=== PATIENT | female | born 1950 | race Caucasian/White ===

== ENCOUNTER 2021-03-12 08:39 | Inpatient (IN) | payer MEDICARE ==
[2021-03-12] MEDS ORDERED: ACETAMINOPHEN TAB 325 MG TAB PO PRN (09:18)
--- NOTE | 2021-03-12 10:25 | XR ---
EXAMINATION TYPE: XR chest 1V portable DATE OF EXAM: 03/12/2021 COMPARISON: NONE HISTORY: Suspected Covid 19 pneumonia TECHNIQUE: Single frontal view of the chest is obtained. FINDINGS: Patchy bilateral densities are present peripherally especially at the lung bases. No evide nt pneumothorax or pleural effusion. Cardiac mediastinal silhouette is within normal limits. Aorta is dense. Patient shows overlying artifact. IMPRESSION: Correlate for pneumonia, follow-up suggested.
[2021-03-12 10:40] LABS: Basophils % (A) 0 %; Eosinophils % (A) 0 %; HGB 14.9 gm/dL (11.4-16.0); Lymphocytes # (A) 0.3 k/uL (1.0-4.8); Lymphocytes % (A) 5 %; MCH 29.8 pg (25.0-35.0); MCHC 33.8 g/dL (31.0-37.0); MCV 88.1 fL (80.0-100.0); Mean Platelet Volume 7.2; Monocytes # (A) 0.3 k/uL (0-1.0); Monocytes % (A) 5 %; Neutrophils # (A) 5.2 k/uL (1.3-7.7); Neutrophils % (A) 88 %; Platelet Count 289 k/uL (150-450); RDW 12.1 % (11.5-15.5); WBC 5.9 k/uL (3.8-10.6)
[2021-03-12] MEDS: ALBUTEROL HFA INHALER INHALATION PRN ×2 (10:52→16:49)
[2021-03-12 10:58] LABS: Partial Thromboplastin Time 26.1 sec (22.0-30.0); Prothrombin Time 10.6 sec (9.0-12.0)
[2021-03-12 10:59] LABS: ALT 56 U/L (4-34); AST 53 U/L (14-36); African American GFR (CKD) >90 (>60 ml/min/1.73 sqM); Albumin 3.9 g/dL (3.5-5.0); Alkaline Phosphatase 57 U/L (38-126); Anion Gap 11 mmol/L; Blood Urea Nitrogen 13 mg/dL (7-17); C Reactive Protein 5.2 mg/dL (<1.0); Carbon Dioxide 22 mmol/L (22-30); Chloride 105 mmol/L (98-107); Glucose 160 mg/dL (74-99); LDH 1238 U/L (313-618); Magnesium 1.9 mg/dL (1.6-2.3); Non-African American GFR(CKD) 84 (>60 ml/min/1.73 sqM); Potassium 3.7 mmol/L (3.5-5.1); Sodium 138 mmol/L (137-145); Total Bilirubin 0.6 mg/dL (0.2-1.3); Total Protein 6.7 g/dL (6.3-8.2)
[2021-03-12] MEDS ORDERED: SODIUM CHLORIDE 0.9% 500 ML 500 ML IV STA (11:11)
[2021-03-12] MEDS ORDERED: ONDANSETRON 4 MG/2 ML VIAL IVP PRN (11:12)
[2021-03-12] MEDS ORDERED: NALOXONE 0.4 MG/ML 1 ML VIAL IV PRN (11:12)
--- NOTE | 2021-03-12 11:48 | ED ---
General Adult HPI - General Chief complaint: Shortness of Breath Stated complaint: Low oxygen Time Seen by Provider: 03/12/21 08:58 Source: patient, RN notes reviewed, old records reviewed Mode of arrival: ambulatory Limitations: no limitations - History of Present Illness Initial comments: Patient is a 70-year-old female with past medical history remarkable for thyroid disorder who presents emergency Department complaining of worsening Covid symptoms and shortness breath. She states she has had symptoms for at least 2 weeks. Most over the last few days she has been having worsening shortness of breath. She checked her pulse ox at home and was surprised to find it was in the low 80%'s which is why she presents emergency department for further evaluation. Endorses a mild minimally productive cough. Denies any nausea or vomiting. His time by mouth intake. He denies any chest pain. Has no other acute complaints at this time. Patient was not vaccinated. She denies any fevers. She did not receive monoclonal antibodies. - Related Data Home Medications Medication Instructions Recorded Confirmed Albuterol Sulfate [Proair Hfa] 1 - 2 puff INHALATION RT-QID PRN 03/12/21 03/12/21 Ascorbic Acid [Vitamin C] 500 mg PO DAILY 03/12/21 03/12/21 Azithromycin [Zithromax] 500 mg PO DAILY 03/12/21 03/12/21 Benzonatate [Tessalon Perles] 200 mg PO TID PRN 03/12/21 03/12/21 Calcium Carbonate [Calcium] 600 mg PO DAILY 03/12/21 03/12/21 Cholecalciferol [Vitamin D3 (25 25 mcg PO DAILY 03/12/21 03/12/21 Mcg = 1000 Iu)] Cyanocobalamin (Vitamin B-12) 1,000 mcg PO DAILY 03/12/21 03/12/21 [Vitamin B-12] Levothyroxine Sodium [Synthroid] 150 mcg PO DAILY 03/12/21 03/12/21 Niacin 500 mg PO DAILY 03/12/21 03/12/21 Zinc 50 mg PO DAILY 03/12/21 03/12/21 dexAMETHasone 4 mg PO DAILY 03/12/21 03/12/21 Allergies Allergy/AdvReac Type Severity Reaction Status Date / Time No Known Allergies Allergy Verified 03/12/21 11:06 Review of Systems ROS Statement: Those systems with pertinent positive or pertinent negative responses have been documented in the HPI. Review of Systems: CONST: Denies fever EYES: Denies blurry vision ENT: Denies nasal congestion C/V: Denies Chest pain RESP: Endorses shortness of breath GI: Denies abdominal pain : Denies dysuria SKIN: Denies rash. MSK: Denies joint pain. NEURO: Denies headache ROS Other: All systems not noted in ROS Statement are negative. Past Medical History Past Medical History: Thyroid Disorder History of Any Multi-Drug Resistant Organisms: None Reported Additional Past Surgical History / Comment(s): Thyroid removal, eye surgery Past Psychological History: No Psychological Hx Reported Smoking Status: Never smoker Past Alcohol Use History: None Reported Past Drug Use History: None Reported General Exam - General Exam Comments Initial Comments: General: In mild respiratory distress when ambulating. HEAD: Normal with no signs of head trauma. EYES: PERRLA, EOMI, conjunctiva normal, no discharge. ENT: Hearing grossly intact, normal oropharynx. RESPIRATORY: Mild bilateral crackles. No wheezes, rales, or rhonchi. Not hypoxic at rest, however is hypoxic on exertion down to worst of 86%. C/V: Patient is mildly tachycardic with a regular rhythm. S1 and S2 auscultated. No peripheral edema. Peripheral pulses are 2+ and intact. ABD: Abd is soft, nontender, nondistended EXT: Normal range of motion, no obvious deformity SKIN: No rashes or lesions observed on exposed skin. NEURO: Alert and oriented 4. Limitations: no limitations Course Vital Signs 03/12/21 03/12/21 03/12/21 08:48 09:55 12:43 Temperature 99.1 F Pulse Rate 107 H 109 H Respiratory 20 20 20 Rate Blood Pressure 147/80 146/89 O2 Sat by Pulse 93 L 93 L Oximetry Medical Decision Making - Medical Decision Making Based on patient's presentation and physical exam, I'm concerned for worsening hypoxic respiratory failure secondary to COVID-19 pneumonia. She is not hypoxic at rest but does have exertional hypoxia. Therefore we will obtain Covid 19 laboratory studies. She is outside the window for monoclonal antibodies. She'll be started on Decadron twice a day as well as when necessary breathing treatments and Tylenol. Chest x-ray and EKG will be obtained. She was in agreement with this plan. EKG showed sinus tachycardia with no signs of acute ischemia. Chest x-ray revealed bilateral pulmonary infiltrates. Laboratory studies are remarkable for a normal d-dimer. Lactate is mildly elevated 2.4 which is likely secondary to mild dehydration. She'll be given a small fluid bolus. Patient's LDH is elevated at 1200. Troponin is negative. CRP is elevated to 5.2. Covid is positive. Remainder of the labs are unremarkable. Accepted the patient on the results of laboratory studies and imaging. I would like to admitted to the hospital at this time due to her exertional hypoxia. She was in agreement this plan. I consulted Dr. Vincent of pulmonology as well as Dr. Gallego of infectious disease. I spoke with the admitting team under Dr. Lama who accepted the patient. Patient was therefore admitted and serous condition to telemetry bed. - Lab Data Result diagrams: 03/12/21 10:14 03/12/21 10:13 Lab Results 03/12/21 03/12/21 03/12/21 Range/Units 10:13 10:13 10:13 WBC (3.8-10.6) k/uL RBC (3.80-5.40) m/uL Hgb (11.4-16.0) gm/dL Hct (34.0-46.0) % MCV (80.0-100.0) fL MCH (25.0-35.0) pg MCHC (31.0-37.0) g/dL RDW (11.5-15.5) % Plt Count (150-450) k/uL MPV Neutrophils % % Lymphocytes % % Monocytes % % Eosinophils % % Basophils % % Neutrophils # (1.3-7.7) k/uL Lymphocytes # (1.0-4.8) k/uL Monocytes # (0-1.0) k/uL Eosinophils # (0-0.7) k/uL Basophils # (0-0.2) k/uL PT 10.6 (9.0-12.0) sec INR 1.0 (<1.2) APTT 26.1 (22.0-30.0) sec D-Dimer 0.51 (<0.60) mg/L FEU Sodium 138 (137-145) mmol/L Potassium 3.7 (3.5-5.1) mmol/L Chloride 105 (98-107) mmol/L Carbon Dioxide 22 (22-30) mmol/L Anion Gap 11 mmol/L BUN 13 (7-17) mg/dL Creatinine 0.74 (0.52-1.04) mg/dL Est GFR (CKD-EPI)AfAm >90 (>60 ml/min/1.73 sqM) Est GFR (CKD-EPI)NonAf 84 (>60 ml/min/1.73 sqM) Glucose 160 H (74-99) mg/dL Lactic Ac Sepsis Rflx Plasma Lactic Acid Brandyn 2.4 H* (0.7-2.0) mmol/L Calcium 9.0 (8.4-10.2) mg/dL Magnesium 1.9 (1.6-2.3) mg/dL Total Bilirubin 0.6 (0.2-1.3) mg/dL AST 53 H (14-36) U/L ALT 56 H (4-34) U/L Alkaline Phosphatase 57 (38-126) U/L Lactate Dehydrogenase 1238 H (313-618) U/L Troponin I (0.000-0.034) ng/mL C-Reactive Protein 5.2 H (<1.0) mg/dL Total Protein 6.7 (6.3-8.2) g/dL Albumin 3.9 (3.5-5.0) g/dL Coronavirus (PCR) (Not Detectd) 03/12/21 03/12/21 03/12/21 Range/Units 10:13 10:14 10:32 WBC 5.9 (3.8-10.6) k/uL RBC 5.00 (3.80-5.40) m/uL Hgb 14.9 (11.4-16.0) gm/dL Hct 44.0 (34.0-46.0) % MCV 88.1 (80.0-100.0) fL MCH 29.8 (25.0-35.0) pg MCHC 33.8 (31.0-37.0) g/dL RDW 12.1 (11.5-15.5) % Plt Count 289 (150-450) k/uL MPV 7.2 Neutrophils % 88 % Lymphocytes % 5 % Monocytes % 5 % Eosinophils % 0 % Basophils % 0 % Neutrophils # 5.2 (1.3-7.7) k/uL Lymphocytes # 0.3 L (1.0-4.8) k/uL Monocytes # 0.3 (0-1.0) k/uL Eosinophils # 0.0 (0-0.7) k/uL Basophils # 0.0 (0-0.2) k/uL PT (9.0-12.0) sec INR (<1.2) APTT (22.0-30.0) sec D-Dimer (<0.60) mg/L FEU Sodium (137-145) mmol/L Potassium (3.5-5.1) mmol/L Chloride (98-107) mmol/L Carbon Dioxide (22-30) mmol/L Anion Gap mmol/L BUN (7-17) mg/dL Creatinine (0.52-1.04) mg/dL Est GFR (CKD-EPI)AfAm (>60 ml/min/1.73 sqM) Est GFR (CKD-EPI)NonAf (>60 ml/min/1.73 sqM) Glucose (74-99) mg/dL Lactic Ac Sepsis Rflx Plasma Lactic Acid Brandyn (0.7-2.0) mmol/L Calcium (8.4-10.2) mg/dL Magnesium (1.6-2.3) mg/dL Total Bilirubin (0.2-1.3) mg/dL AST (14-36) U/L ALT (4-34) U/L Alkaline Phosphatase (38-126) U/L Lactate Dehydrogenase (313-618) U/L Troponin I <0.012 (0.000-0.034) ng/mL C-Reactive Protein (<1.0) mg/dL Total Protein (6.3-8.2) g/dL Albumin (3.5-5.0) g/dL Coronavirus (PCR) Detected A (Not Detectd) 03/12/21 Range/Units 11:10 WBC (3.8-10.6) k/uL RBC (3.80-5.40) m/uL Hgb (11.4-16.0) gm/dL Hct (34.0-46.0) % MCV (80.0-100.0) fL MCH (25.0-35.0) pg MCHC (31.0-37.0) g/dL RDW (11.5-15.5) % Plt Count (150-450) k/uL MPV Neutrophils % % Lymphocytes % % Monocytes % % Eosinophils % % Basophils % % Neutrophils # (1.3-7.7) k/uL Lymphocytes # (1.0-4.8) k/uL Monocytes # (0-1.0) k/uL Eosinophils # (0-0.7) k/uL Basophils # (0-0.2) k/uL PT (9.0-12.0) sec INR (<1.2) APTT (22.0-30.0) sec D-Dimer (<0.60) mg/L FEU Sodium (137-145) mmol/L Potassium (3.5-5.1) mmol/L Chloride (98-107) mmol/L Carbon Dioxide (22-30) mmol/L Anion Gap mmol/L BUN (7-17) mg/dL Creatinine (0.52-1.04) mg/dL Est GFR (CKD-EPI)AfAm (>60 ml/min/1.73 sqM) Est GFR (CKD-EPI)NonAf (>60 ml/min/1.73 sqM) Glucose (74-99) mg/dL Lactic Ac Sepsis Rflx Y Plasma Lactic Acid Brandyn (0.7-2.0) mmol/L Calcium (8.4-10.2) mg/dL Magnesium (1.6-2.3) mg/dL Total Bilirubin (0.2-1.3) mg/dL AST (14-36) U/L ALT (4-34) U/L Alkaline Phosphatase (38-126) U/L Lactate Dehydrogenase (313-618) U/L Troponin I (0.000-0.034) ng/mL C-Reactive Protein (<1.0) mg/dL Total Protein (6.3-8.2) g/dL Albumin (3.5-5.0) g/dL Coronavirus (PCR) (Not Detectd) - EKG Data -: EKG Interpreted by Me EKG Comments: 12-lead Electrocardiogram Interpretation Note EKG was reviewed and interpreted by myself. 12-lead ECG performed at 0900 is interpreted by me as revealing sinus tachycardia at a rate of 105 beats per minute. [place] is normal. IN interval is 130 ms, QRS duration is 80 ms, QTc is 438 ms.. There were no ST or T wave abnormalities to suggest myocardial ischemia or injury. R wave progression across the precordium was satisfactory. By my interpretation this EKG is non-diagnostic for acute ischemia. Disposition Clinical Impression: Pneumonia due to COVID-19 virus, Acute respiratory failure with hypoxia, Dehydration Disposition: ADMITTED IP TO THIS HOSP Condition: Serious
[2021-03-12] MEDS: DEXAMETHASONE SOD PHOSPHATE 10 MG/ML 1 ML VIAL IVP SCH ×2 (12:40→19:55)
[2021-03-12] MEDS: ENOXAPARIN 40 MG/0.4 ML SYRINGE SQ SCH (12:41)
--- NOTE | 2021-03-12 13:27 | P.CNPUL ---
History of Present Illness Consult date: 03/12/21 Requesting physician: Michelle Lama Reason for consult: dyspnea, abnormal CXR/CT Chief complaint: Shortness of breath, cough, congestion History of present illness: This is a pleasant 70-year-old female patient with known history of hypothyroidism status post thyroidectomy. Left lung nonsmoker. She has a two- week history of fatigue, weakness, shortness of breath and dyspnea on exertion. She had been seen in urgent care and was started on albumin, azithromycin and Decadron. This was just yesterday. She presented here to the emergency room this morning with worsening symptoms. Her had been admitted one week ago for COVID-19. She is also positive for COVID-19. Chest x-ray is positive for patchy bilateral densities present peripherally especially at the lung bases. White count 5.9. Hemoglobin 14.9. Lymphocytes 0.3. D-dimer 0.51. Sodium 138. Potassium 3.7. Creatinine 0.74. Glucose 160. AST 53. ALT 56. LDH 1238. C-reactive protein 5.2. She's been initiated on Decadron, Lovenox. He is seen in consultation in the emergency room. She is sitting up on the s tretcher. Awake and alert in no acute distress. Maintain O2 saturation at 93% on room air. Afebrile. Slightly tachycardic. Blood pressure stable. Review of Systems REVIEW OF SYSTEMS: CONSTITUTIONAL: Denies any recent significant weight loss or weight gain. EYES: Denies change in vision. EARS, NOSE, MOUTH, THROAT: Denies headaches, denies sore throat. CARDIOVASCULAR: Denies chest pain, palpitations or syncopal episodes. RESPIRATORY: Positive for shortness of breath, cough, congestion no hemoptysis. GASTROINTESTINAL: Denies change in appetite, denies abdominal pain GENITOURINARY: Denies hematuria, denies infections. MUSKULOSKELETAL: Denies pain, denies swelling. INTEGUMENTARY: Denies rash, denies eczema. NEUROLOGICAL: Denies recent memory loss, no recent seizure activity. PSYCHIATRIC: Denies anxiety, denies depression. HEMATOLOGIC/LYMPHATIC: Denies anemia, denies enlarged lymph nodes. Past Medical History Past Medical History: Thyroid Disorder History of Any Multi-Drug Resistant Organisms: None Reported Additional Past Surgical History / Comment(s): Thyroid removal, eye surgery Past Psychological History: No Psychological Hx Reported Smoking Status: Never smoker Past Alcohol Use History: None Reported Past Drug Use History: None Reported Medications and Allergies Home Medications Medication Instructions Recorded Confirmed Type Albuterol Sulfate [Proair Hfa] 1 - 2 puff INHALATION RT-QID PRN 03/12/21 History Ascorbic Acid [Vitamin C] 500 mg PO DAILY 03/12/21 03/12/21 History Azithromycin [Zithromax] 500 mg PO DAILY 03/12/21 03/12/21 History Benzonatate [Tessalon Perles] 200 mg PO TID PRN 03/12/21 03/12/21 History Calcium Carbonate [Calcium] 600 mg PO DAILY 03/12/21 03/12/21 History Cholecalciferol [Vitamin D3 (25 25 mcg PO DAILY 03/12/21 03/12/21 History Mcg = 1000 Iu)] Cyanocobalamin (Vitamin B-12) 1,000 mcg PO DAILY 03/12/21 03/12/21 History [Vitamin B-12] Levothyroxine Sodium [Synthroid] 150 mcg PO DAILY 03/12/21 03/12/21 History Niacin 500 mg PO DAILY 03/12/21 03/12/21 History Zinc 50 mg PO DAILY 03/12/21 03/12/21 History dexAMETHasone 4 mg PO DAILY 03/12/21 03/12/21 History Allergies Allergy/AdvReac Type Severity Reaction Status Date / Time No Known Allergies Allergy Verified 03/12/21 11:06 Physical Exam Vitals: Vital Signs Temp Pulse Resp BP Pulse Ox 03/12/21 12:43 109 H 20 146/89 93 L 03/12/21 09:55 20 03/12/21 08:48 99.1 F 107 H 20 147/80 93 L Intake and Output 03/11/21 03/12/21 03/12/21 22:59 06:59 14:59 Other: Weight 87.09 kg GENERAL EXAM: Alert, pleasant 70-year-old female, on room air, fairly comfortable in no apparent distress. HEAD: Normocephalic. EYES: Normal reaction of pupils, equal size. NOSE: Clear with pink turbinates. THROAT: No erythema or exudates. NECK: No masses, no JVD. CHEST: No chest wall deformity. LUNGS: Equal air entry with crackles in the bilateral bases. CVS: S1 and S2 normal with no audible murmur, regular rhythm. ABDOMEN: No hepatosplenomegaly, normal bowel sounds, no guarding or rigidity. SPINE: No scoliosis or deformity SKIN: No rashes CENTRAL NERVOUS SYSTEM: No focal deficits, tone is normal in all 4 extremities. EXTREMITIES: There is no peripheral edema. No clubbing, no cyanosis. Peripheral pulses are intact. Results - Laboratory Findings CBC and BMP: 03/12/21 10:14 03/12/21 10:13 PT/INR, D-dimer PT 10.6 sec (9.0-12.0) 03/12/21 10:13 INR 1.0 (<1.2) 03/12/21 10:13 D-Dimer 0.51 mg/L FEU (<0.60) 03/12/21 10:13 Abnormal lab findings: Abnormal Labs 03/12/21 03/12/21 03/12/21 10:13 10:13 10:14 Lymphocytes # 0.3 L Glucose 160 H Plasma Lactic Acid Brandyn 2.4 H* AST 53 H ALT 56 H Lactate Dehydrogenase 1238 H C-Reactive Protein 5.2 H Coronavirus (PCR) 03/12/21 10:32 Lymphocytes # Glucose Plasma Lactic Acid Brandyn AST ALT Lactate Dehydrogenase C-Reactive Protein Coronavirus (PCR) Detected A - Diagnostic Findings Chest x-ray: image reviewed Assessment and Plan Assessment: 1 Acute hypoxemic respiratory failure secondary to COVID-19 pneumonia. Onset of symptoms 2 weeks ago. Outside the window for Remdesivir. Not qualifying for Baricitinib. We'll initiate Lovenox, Decadron, vitamin supplements. Not vaccinated. 2 Elevated inflammatory markers secondary to above 3 Hypothyroidism status post thyroidectomy Plan: The patient was seen and evaluated Chest x-ray and labs reviewed Continue Lovenox, Decadron, vitamin supplements Oxygen supplementation as needed Follow-up labs and x-ray in the a.m. We will continue to follow and make further recommendations based on her clinical status I, the cosigning physician, performed a history & physical examination of the patient. Lungs sounds with crackles in the bilateral bases. Maintaining O2 saturations in the 90s on room air. I discussed the assessment and plan of care with my nurse practitioner, Raquel Bauer. I attest to the above consultation as dictated by her. Time with Patient: Greater than 30
--- NOTE | 2021-03-12 13:40 | P.HPIM ---
History of Present Illness H&P Date: 03/12/21 Chief Complaint: Shortness of breath This is a pleasant 70-year-old female who presents to [facility] with increased fatigue, shortness of breath and fevers over the past 10 days. Patient stated that she had a home COVID test that was positive. Patient was evaluated at an urgent care center yesterday and was given azithromycin and Decadron. After worsening symptoms, patient decided to be seen and evaluated in the emergency department. Medical history includes hypothyroid status post thyroidectomy. Patient denies chest pain. Patient admits to a cough. Lactic acid drawn in the ER was 2.4, LDH 1238, CRP 5.2, elevated liver enzymes AST 53 ALT 56. Chest x-ray showed patchy bilateral densities especially at the lung bases. Covid PCR was positive. Review of Systems T point review of systems was assessed patient was only positive for those discussed in HPI Past Medical History Past Medical History: Thyroid Disorder History of Any Multi-Drug Resistant Organisms: None Reported Additional Past Surgical History / Comment(s): Thyroid removal, eye surgery Past Psychological History: No Psychological Hx Reported Smoking Status: Never smoker Past Alcohol Use History: None Reported Past Drug Use History: None Reported Medications and Allergies Home Medications Medication Instructions Recorded Confirmed Type Albuterol Sulfate [Proair Hfa] 1 - 2 puff INHALATION RT-QID PRN 03/12/21 03/12/21 History Ascorbic Acid [Vitamin C] 500 mg PO DAILY 03/12/21 03/12/21 History Azithromycin [Zithromax] 500 mg PO DAILY 03/12/21 03/12/21 History Benzonatate [Tessalon Perles] 200 mg PO TID PRN 03/12/21 03/12/21 History Calcium Carbonate [Calcium] 600 mg PO DAILY 03/12/21 03/12/21 History Cholecalciferol [Vitamin D3 (25 25 mcg PO DAILY 03/12/21 03/12/21 History Mcg = 1000 Iu)] Cyanocobalamin (Vitamin B-12) 1,000 mcg PO DAILY 03/12/21 03/12/21 History [Vitamin B-12] Levothyroxine Sodium [Synthroid] 150 mcg PO DAILY 03/12/21 03/12/21 History Niacin 500 mg PO DAILY 03/12/21 03/12/21 History Zinc 50 mg PO DAILY 03/12/21 03/12/21 History dexAMETHasone 4 mg PO DAILY 03/12/21 03/12/21 History Allergies Allergy/AdvReac Type Severity Reaction Status Date / Time No Known Allergies Allergy Verified 03/12/21 11:06 Physical Exam Osteopathic Statement: *. No significant issues noted on an osteopathic structural exam other than those noted in the History and Physical/Consult. Vitals: Vital Signs Temp Pulse Resp BP Pulse Ox 03/12/21 12:43 109 H 20 146/89 93 L 03/12/21 09:55 20 03/12/21 08:48 99.1 F 107 H 20 147/80 93 L Intake and Output 03/11/21 03/12/21 03/12/21 22:59 06:59 14:59 Other: Weight 87.09 kg General: [non toxic], [no distress], [appears at stated age] Derm: [warm], [dry] Head: [atraumatic], [normocephalic], [symmetric] Eyes: [EOMI], [no lid lag], [anicteric sclera] Mouth: [no lip lesion], [mucus membranes moist] Cardiovascular: [S1S2 reg], [no murmur], [positive posterior tibial pulse bilateral], Lungs: [bilateral crackles], [no rhonchi, no rales] , [no accessory muscle use] Abdominal: [soft], [ nontender to palpation], [no guarding], [no appreciable organomegaly] Ext: [no gross muscle atrophy], [no edema], [no contractures] Neuro: [ CN II-XI grossly intact], [no focal neuro deficits] Psych: [Alert], [oriented], [appropriate affect] Results CBC & Chem 7: 03/12/21 10:14 03/12/21 10:13 Labs: Abnormal Lab Results - Last 24 Hours (Table) 03/12/21 03/12/21 03/12/21 Range/Units 10:13 10:13 10:14 Lymphocytes # 0.3 L (1.0-4.8) k/uL Glucose 160 H (74-99) mg/dL Plasma Lactic Acid Brandyn 2.4 H* (0.7-2.0) mmol/L AST 53 H (14-36) U/L ALT 56 H (4-34) U/L Lactate Dehydrogenase 1238 H (313-618) U/L C-Reactive Protein 5.2 H (<1.0) mg/dL Coronavirus (PCR) (Not Detectd) 03/12/21 Range/Units 10:32 Lymphocytes # (1.0-4.8) k/uL Glucose (74-99) mg/dL Plasma Lactic Acid Brandyn (0.7-2.0) mmol/L AST (14-36) U/L ALT (4-34) U/L Lactate Dehydrogenase (313-618) U/L C-Reactive Protein (<1.0) mg/dL Coronavirus (PCR) Detected A (Not Detectd) Thrombosis Risk Factor Assmnt - DVT/VTE Prophylaxis DVT/VTE Prophylaxis: Pharmacologic Prophylaxis ordered Assessment and Plan Assessment: 1. Acute hypoxic respiratory failure secondary to COVID pneumonia * Continue IV antibiotics, IV steroids and vitamin supplements * Recommendations appreciated * ID recommendations appreciated * Oxygen nc with goal O2 saturation above 92% 2. Hypothyroid * Resume home medication 3. Elevated transaminases * Trend AST and ALT 4. Elevated inflammatory markers secondary to #1 5. GI/DVT prophylaxis 4. A.m. labs Anticipated discharge: Greater than 2 midnight hospital stay CODE STATUS FULL CODE Time with Patient: Greater than 30
[2021-03-12] MEDS: FAMOTIDINE 20 MG TAB PO SCH (15:05)
[2021-03-12] MEDS: CHOLECALCIFEROL 25 MCG (1000 IU) TABLET PO SCH (15:05)
[2021-03-12] MEDS: ZINC SULFATE 220 MG CAP PO SCH (15:05)
[2021-03-12] MEDS: ASCORBIC ACID 500 MG TAB PO SCH (15:05)
--- NOTE | 2021-03-12 22:55 | P.CONS ---
History of Present Illness - Reason for Consult Consult date: 03/12/21 covid 19 pneumonia Requesting physician: Michelle Lama - Chief Complaint shortness of breath and low pluse ox x few days - History of Present Illness History of present illness : Patient is 70-year female presenting to the ER for evaluation of worsening shortness of breath and this patient symptom has going on for at least 2 days before presentation to the hospital however over the last few days patient complaining of increasing shortness of breath on minimal exertion the patient be checking her O2 sats at home and notes it is her O2 sats to be in the 80s, patient also have a cough which is mild to moderate intensity is mostly dry in nature unable to cough up anything but did have some nausea and he has only been vomiting abdominal pain some diarrhea on presentation to the hospital patient did have low-grade fever of 99.1 F patient is satting 9324% on room air patient did have a normal white count with lymphopenia D-dimer was normal creatinine is normal there was observed mildly elevated glucose 0.14 sharma PCR is positive patient did have a chest x-ray correlate for pneumonia patient was admitted to hospital infectious disease was consulted for further management Review of system: CONSTITUTIONAL: Positive for weakness along with the fever. EYES: No complaint. ENT: No complaint. RESPIRATORY: As per history of present illness. CARDIOVASCULAR: No complaint. GENITOURINARY: No complaint. GASTROINTESTINAL: As per history of present illness nt. MUSCULOSKELETAL: No complaint. INTEGUMENTARY: No complaint. PSYCHOLOGIC: No complaint. ENDOCRINE: No complaint. NEUROLOGIC: No complaint. Past medical history : Reviewed, documented below Past surgical history : Reviewed, documented below Social history: Reviewed, documented below Medications: Reviewed, as documented below EXAMINATION: Vital sigans= Reviewed and documented below GENERAL DESCRIPTION: Elderly female lying in bed, no distress. No tachypnea or accessory muscle of respiration use. HEENT: Shows Pallor , no scleral icterus. Oral mucous membrane is dry. NECK: Trachea central, no thyromegaly. LUNGS: Unlabored breathing. Decrease intensity of breath sounds. No wheeze or crackle. HEART: S1, S2, regular rate and rhythm. ABDOMEN: Soft, no tenderness , guarding or rigidity EXTREMITIES: No edema of feet. SKIN: No rash, no masses palpable. NEUROLOGICAL: The patient is awake, alert, oriented x3, mood and affect normal. LABS AND RADIOLOGY: Reviewed results see below Assessment : Patient presented to hospital with increasing shortness of breath and a cough hypoxemia and this patient symptom has been going on for about 2 weeks patient did have evidence of multifocal pneumonia secondary to COVID-19 and is currently out of the therapeutic window for remdesivir per [facility] policy plus patient not significantly hypoxic on admission to the hospital no evidence of any secondary bacterial pneumonia Plan: 1-patient to continue with the dexamethasone her Lovenox and ascorbic acid 2-droplet isolation and respiratory support 3-no need for systemic antibiotic therapy We will follow on clinical condition and cultures to further adjust medication if needed Thank you for this consultation we will follow the patient along with you Past Medical History Past Medical History: Thyroid Disorder History of Any Multi-Drug Resistant Organisms: None Reported Additional Past Surgical History / Comment(s): Thyroid removal, eye surgery Past Psychological History: No Psychological Hx Reported Smoking Status: Never smoker Past Alcohol Use History: None Reported Past Drug Use History: None Reported - Past Family History Father Family Medical History: Respiratory Disorder Additional Family Medical History / Comment(s): TB Mother Family Medical History: Hypertension Medications and Allergies Home Medications Medication Instructions Recorded Confirmed Type Albuterol Sulfate [Proair Hfa] 1 - 2 puff INHALATION RT-QID PRN 03/12/21 03/12/21 History Ascorbic Acid [Vitamin C] 500 mg PO DAILY 03/12/21 03/12/21 History Azithromycin [Zithromax] 500 mg PO DAILY 03/12/21 03/12/21 History Benzonatate [Tessalon Perles] 200 mg PO TID PRN 03/12/21 03/12/21 History Calcium Carbonate [Calcium] 600 mg PO DAILY 03/12/21 03/12/21 History Cholecalciferol [Vitamin D3 (25 25 mcg PO DAILY 03/12/21 03/12/21 History Mcg = 1000 Iu)] Cyanocobalamin (Vitamin B-12) 1,000 mcg PO DAILY 03/12/21 03/12/21 History [Vitamin B-12] Levothyroxine Sodium [Synthroid] 150 mcg PO DAILY 03/12/21 03/12/21 History Niacin 500 mg PO DAILY 03/12/21 03/12/21 History Zinc 50 mg PO DAILY 03/12/21 03/12/21 History dexAMETHasone 4 mg PO DAILY 03/12/21 03/12/21 History Allergies Allergy/AdvReac Type Severity Reaction Status Date / Time No Known Allergies Allergy Verified 03/12/21 11:06 Physical Exam Vitals: Vital Signs Temp Pulse Resp BP Pulse Ox 03/12/21 09:55 20 03/12/21 08:48 99.1 F 107 H 20 147/80 93 L Intake and Output 03/11/21 03/12/21 03/12/21 22:59 06:59 14:59 Other: Weight 87.09 kg Results CBC & Chem 7: 03/12/21 10:14 03/12/21 10:13 Labs: Abnormal Lab Results - Last 24 Hours (Table) 03/12/21 03/12/21 03/12/21 Range/Units 10:13 10:13 10:14 Lymphocytes # 0.3 L (1.0-4.8) k/uL Glucose 160 H (74-99) mg/dL Plasma Lactic Acid Brandyn 2.4 H* (0.7-2.0) mmol/L AST 53 H (14-36) U/L ALT 56 H (4-34) U/L Lactate Dehydrogenase 1238 H (313-618) U/L C-Reactive Protein 5.2 H (<1.0) mg/dL Coronavirus (PCR) (Not Detectd) 03/12/21 Range/Units 10:32 Lymphocytes # (1.0-4.8) k/uL Glucose (74-99) mg/dL Plasma Lactic Acid Brandyn (0.7-2.0) mmol/L AST (14-36) U/L ALT (4-34) U/L Lactate Dehydrogenase (313-618) U/L C-Reactive Protein (<1.0) mg/dL Coronavirus (PCR) Detected A (Not Detectd)
[2021-03-12] MEDS ORDERED: RIBAVIRIN 200 MG PO SCH (23:00)
[2021-03-12] MEDS ORDERED: guaiFENesin SYRUP 100MG/5ML 200 MG/10 ML CUP PO PRN (23:34)
[2021-03-13 06:09] LABS: Glucose,Whole Blood 147 mg/dL (75-99)
[2021-03-13] MEDS ORDERED: LEVOTHYROXINE 75 MCG TAB PO SCH (06:30)
--- NOTE | 2021-03-13 08:02 | XR ---
EXAMINATION TYPE: XR chest 1V portable DATE OF EXAM: 03/13/2021 Comparison: 03/12/2021 Clinical History: 70-year-old female CoVID pneumonia Findings: The heart is upper limits of normal in size. Mild hyperinflation. Patchy groundglass changes in the l ower lungs are similar. Impression: 1. Borderline cardiomegaly and COPD. 2. Patchy basilar groundglass COVID pneumonia is unchanged.
[2021-03-13] MEDS: ZINC SULFATE 220 MG CAP PO SCH (08:11)
[2021-03-13] MEDS: CHOLECALCIFEROL 25 MCG (1000 IU) TABLET PO SCH (08:11)
[2021-03-13] MEDS: ENOXAPARIN 40 MG/0.4 ML SYRINGE SQ SCH (08:11)
[2021-03-13] MEDS: ASCORBIC ACID 500 MG TAB PO SCH (08:11)
[2021-03-13] MEDS: DEXAMETHASONE SOD PHOSPHATE 10 MG/ML 1 ML VIAL IVP SCH (08:11)
[2021-03-13] MEDS: FAMOTIDINE 20 MG TAB PO SCH (08:11)
[2021-03-13 09:54] VITALS: BP 145/80; PULSE 104; RESP 17; TEMP 98.7
[2021-03-13 10:49] LABS: Basophils # (A) 0 X 10*3/uL (0.00-0.10); Basophils % (A) 0 %; Eosinophils # (A) 0 X 10*3/uL (0.04-0.35); Eosinophils % (A) 0 %; HCT 41.7 % (37.2-46.3); HGB 13.6 g/dL (12.0-15.0); Lymphocytes # (A) 0.61 X 10*3/uL (0.90-5.00); Lymphocytes % (A) 6.6 %; MCH 28.9 pg (27.0-32.0); MCHC 32.6 g/dL (32.0-37.0); MCV 88.7 fL (80.0-97.0); Mean Platelet Volume 9.8 fL (9.5-12.2); Monocytes # (A) 0.43 X 10*3/uL (0.20-1.00); Monocytes % (A) 4.6 %; Neutrophils % (A) 88.3 %; Platelet Count 280 X 10*3/uL (140-440); RDW 12.3 % (11.5-14.5); WBC 9.29 X 10*3/uL (4.50-10.00)
[2021-03-13] MEDS: ALBUTEROL HFA INHALER INHALATION PRN (11:25)
[2021-03-13 11:40] LABS: C Reactive Protein 1.9 mg/dL (0.00-0.80)
[2021-03-13 11:52] LABS: African American GFR (CKD) 73.2 (60.0-200.0); Albumin 3.6 g/dL (3.8-4.9); Albumin/Globulin Ratio 1.63 (1.60-3.17); Anion Gap 12.7 mmol/L (10.00-18.00); BUN/Creat Ratio 17.21 Ratio (12.00-20.00); Blood Urea Nitrogen 15.9 mg/dL (9.0-27.0); Calcium 8.6 mg/dL (8.7-10.3); Carbon Dioxide 18.8 mmol/L (20.0-27.5); Globulin 2.2 g/dL (1.6-3.3); Non-African American GFR(CKD) 63.2 (60.0-200.0); Potassium 4.5 mmol/L (3.5-5.5); Total Bilirubin 0.3 mg/dL (0.30-1.20); Total Protein 5.8 g/dL (6.2-8.2)
--- NOTE | 2021-03-13 13:37 | P.DS ---
Providers Date of admission: 03/12/21 11:12 Expected date of discharge: 03/13/21 Attending physician: Michelle Lama DO Consults: 03/12/21 09:18 Consult Physician Routine Consulting Provider: Panfilo Vincent Consult Reason/Comments: COVID 19 pneumonia, exertional hypoxia Do you want consulting provider notified?: Yes 03/12/21 09:19 Consult Physician Stat Consulting Provider: Drew Gallego Consult Reason/Comments: exertional hypoxia, covid 19 pneumonia Do you want consulting provider notified?: Yes Primary care physician: Stated None Hospital Course: 70-year-old female with hx of hypothyroidism who presents to [facility] with increased fatigue, cough, shortness of breath and fevers over the past 10 days. Patient stated that she had a home COVID test that was positive. Patient was evaluated at an urgent care center and was given azithromycin and Decadron. No chest pain. She states that when she was checking her O2 sats at home they were in the 80s. Work up in the ER revealed lactic acid 2.4, LDH 1238, CRP 5.2, elevated liver enzymes AST 53 ALT 56. Chest x-ray showed patchy bilateral densities especially at the lung bases. Covid PCR was positive. She did not drop her O2 sats below 90% on RA. She was admitted for monitoring. Throughout the hospitalization she did not qualify for O2. She was treated with decadron and lovenox. Vitals remained stable. When seen today she was feeling better. Upon discharge today she had O2 evaluation which revealed sats of 88% on RA with exertion. That did not qualify her for home O2 therapy. She is currently doing well, will be sent home in a stable condition. Patient Condition at Discharge: Serious Plan - Discharge Summary Discharge Rx Participant: No New Discharge Prescriptions: Continue Ascorbic Acid [Vitamin C] 500 mg PO DAILY Cholecalciferol [Vitamin D3 (25 Mcg = 1000 Iu)] 25 mcg PO DAILY Azithromycin [Zithromax] 500 mg PO DAILY Niacin 500 mg PO DAILY Zinc 50 mg PO DAILY Cyanocobalamin (Vitamin B-12) [Vitamin B-12] 1,000 mcg PO DAILY Levothyroxine Sodium [Synthroid] 150 mcg PO DAILY Calcium Carbonate [Calcium] 600 mg PO DAILY dexAMETHasone 4 mg PO DAILY Benzonatate [Tessalon Perles] 200 mg PO TID PRN PRN Reason: Cough Albuterol Sulfate [Proair Hfa] 1 - 2 puff INHALATION RT-QID PRN PRN Reason: Shortness Of Breath Discharge Medication List Albuterol Sulfate [Proair Hfa] 1 - 2 puff INHALATION RT-QID PRN 03/12/21 [History] Ascorbic Acid [Vitamin C] 500 mg PO DAILY 03/12/21 [History] Azithromycin [Zithromax] 500 mg PO DAILY 03/12/21 [History] Benzonatate [Tessalon Perles] 200 mg PO TID PRN 03/12/21 [History] Calcium Carbonate [Calcium] 600 mg PO DAILY 03/12/21 [History] Cholecalciferol [Vitamin D3 (25 Mcg = 1000 Iu)] 25 mcg PO DAILY 03/12/21 [History] Cyanocobalamin (Vitamin B-12) [Vitamin B-12] 1,000 mcg PO DAILY 03/12/21 [History] Levothyroxine Sodium [Synthroid] 150 mcg PO DAILY 03/12/21 [History] Niacin 500 mg PO DAILY 03/12/21 [History] Zinc 50 mg PO DAILY 03/12/21 [History] dexAMETHasone 4 mg PO DAILY 03/12/21 [History] Follow up Appointment(s)/Referral(s): None,Stated [Primary Care Provider] - 1 Week
--- NOTE | 2021-03-13 14:39 | PN ---
PROGRESS NOTE DATE OF SERVICE: 03/13/2021 REASON FOR FOLLOWUP: COVID-19 pneumonia. INTERVAL HISTORY: The patient is afebrile. The patient is currently breathing comfortably, not requiring supplemental oxygen now. Saturating around 90% on room air. The patient denies having any chest pain. Continues to have a cough, not bringing up any sputum. No vomiting. No abdominal pain or diarrhea. PHYSICAL EXAMINATION: Blood pressure 145/80 with a pulse of 104, temperature 98.7. He is 90% on room air. General description is an elderly female up in the bed in no distress. Respiratory system: Unlabored breathing, coarse breath sounds bilaterally. No wheeze. Heart S1, S2. Regular rate and rhythm. Abdomen soft, no tenderness. LABS: Hemoglobin is 13.3, white count 9.29, creatinine 0.9. DIAGNOSTIC IMPRESSION AND PLAN: Patient with acute COVID-19 pneumonia in this patient with minimal symptoms, mild illness. Currently on supportive treatment with Decadron, Lovenox, zinc and ascorbic acid; to continue, and monitor clinical course closely. MMODL / IJN: [id number] /
--- NOTE | 2021-03-13 14:42 | P.PN ---
Subjective Progress Note Date: 03/13/21 This is a pleasant 70-year-old female patient with known history of hypothyroidism status post thyroidectomy. Left lung nonsmoker. She has a two- week history of fatigue, weakness, shortness of breath and dyspnea on exertion. She had been seen in urgent care and was started on albumin, azithromycin and Decadron. This was just yesterday. She presented here to the emergency room this morning with worsening symptoms. Her had been admitted one week ago for COVID-19. She is also positive for COVID-19. Chest x-ray is positive for patchy bilateral densities present peripherally especially at the lung bases. White count 5.9. Hemoglobin 14.9. Lymphocytes 0.3. D-dimer 0.51. Sodium 138. Potassium 3.7. Creatinine 0.74. Glucose 160. AST 53. ALT 56. LDH 1238. C-reactive protein 5.2. She's been initiated on Decadron, Lovenox. He is seen in consultation in the emergency room. She is sitting up on the stretcher. Awake and alert in no acute distress. Maintain O2 saturation at 93% on room air. Afebrile. Slightly tachycardic. Blood pressure stable. On today's evaluation of 03/13/2021, the patient is doing well and she has no specific complaints and she remains on room air oxygen. No significant cough sputum production chest masses or wheezing and she feels that she is back to her baseline and she is ready to go home.Her LDH level was low at 598, CRP level was at 1.9 and the patient had a d-dimer of 0.4. The rest of the last from today shows a white cell count of 9.2 with hematocrit of 13.6 and the electrodes are normal. There was some mild transaminitis. Objective - Vital Signs Vital signs: Vital Signs Temp 98.7 F 03/13/21 09:43 Pulse 104 H 03/13/21 09:43 Resp 17 03/13/21 09:43 BP 145/80 03/13/21 09:43 Pulse Ox 90 L 03/13/21 09:43 Intake & Output 03/12/21 03/13/21 03/13/21 18:59 06:59 18:59 Intake Total 1000 Balance 1000 Weight 87.09 kg 87.09 kg Intake: Intake, IV Titration 1000 Amount Sodium Chloride 0.9% 500 1000 ml 500 ml @ 999 mls/hr IV .Q31M STA Rx#:[id number] Other: Voiding Method Toilet - Exam GENERAL EXAM: Alert, pleasant 70-year-old female, on room air, fairly comfortable in no apparent distress. HEAD: Normocephalic. EYES: Normal reaction of pupils, equal size. NOSE: Clear with pink turbinates. THROAT: No erythema or exudates. NECK: No masses, no JVD. CHEST: No chest wall deformity. LUNGS: Equal air entry with crackles in the bilateral bases. CVS: S1 and S2 normal with no audible murmur, regular rhythm. ABDOMEN: No hepatosplenomegaly, normal bowel sounds, no guarding or rigidity. SPINE: No scoliosis or deformity SKIN: No rashes CENTRAL NERVOUS SYSTEM: No focal deficits, tone is normal in all 4 extremities. EXTREMITIES: There is no peripheral edema. No clubbing, no cyanosis. Peripheral pulses are intact. - Labs CBC & Chem 7: 03/13/21 05:58 03/13/21 05:58 Labs: Abnormal Lab Results - Last 24 Hours (Table) 03/12/21 03/12/21 03/13/21 Range/Units 10:13 10:14 05:58 Immature Gran # 0.05 H (0.00-0.04) X 10*3/uL Neutrophils # 8.20 H (1.80-7.70) X 10*3/uL Lymphocytes # 0.61 L (0.90-5.00) X 10*3/uL Eosinophils # 0 L (0.04-0.35) X 10*3/uL Carbon Dioxide (20.0-27.5) mmol/L Glucose (70-110) mg/dL POC Glucose (mg/dL) (75-99) mg/dL Calcium (8.7-10.3) mg/dL Ferritin 1337.0 H (10.0-291.0) ng/mL AST (13-35) U/L ALT (8-44) U/L Lactate Dehydrogenase (120-246) U/L C-Reactive Protein (0.00-0.80) mg/dL Total Protein (6.2-8.2) g/dL Albumin (3.8-4.9) g/dL Procalcitonin 0.14 H (0.02-0.09) ng/mL 03/13/21 03/13/21 Range/Units 05:58 06:07 Immature Gran # (0.00-0.04) X 10*3/uL Neutrophils # (1.80-7.70) X 10*3/uL Lymphocytes # (0.90-5.00) X 10*3/uL Eosinophils # (0.04-0.35) X 10*3/uL Carbon Dioxide 18.8 L (20.0-27.5) mmol/L Glucose 151 H (70-110) mg/dL POC Glucose (mg/dL) 147 H (75-99) mg/dL Calcium 8.6 L (8.7-10.3) mg/dL Ferritin (10.0-291.0) ng/mL AST 53 H (13-35) U/L ALT 50 H (8-44) U/L Lactate Dehydrogenase 598 H (120-246) U/L C-Reactive Protein 1.90 H (0.00-0.80) mg/dL Total Protein 5.8 L (6.2-8.2) g/dL Albumin 3.6 L (3.8-4.9) g/dL Procalcitonin (0.02-0.09) ng/mL Microbiology - Last 24 Hours (Table) 03/12/21 10:28 Blood Culture - Preliminary Blood No Growth after 24 hours 03/12/21 10:13 Blood Culture - Preliminary Blood No Growth after 24 hours Assessment and Plan Plan: 1 Acute hypoxemic respiratory failure secondary to COVID-19 pneumonia. Onset of symptoms 2 weeks ago. Outside the window for Remdesivir. Not qualifying for Baricitinib. We'll initiate Lovenox, Decadron, vitamin supplements. Not vaccinated. 2 Elevated inflammatory markers secondary to above 3 Hypothyroidism status post thyroidectomy Plan: Patient is on room air oxygen. The patient can be discharged home on Decadron pain no need for outpatient incontinence. Monitor pulse ox at home and report back if there is any worsening in her oxygenation. For now, the patient is stable and the patient will be discharged home today.
== END 2021-03-13 14:19 | disposition home or self-care (01) | DRG 177 ==
LOC: EC 08:39 → 4SSUR 11:12
PROVIDERS: ADMIT Internal Medicine; ATTEND Internal Medicine
DX: U07.1 COVID-19 (principal); J12.82 Pneumonia due to coronavirus disease 2019; J96.01 Acute respiratory failure with hypoxia; R00.0 Tachycardia, unspecified; E89.0 Postprocedural hypothyroidism; E86.0 Dehydration; Z79.890 Hormone replacement therapy
CPT/HCPCS: 36415; 71045; 80053; 82728; 83605; 83615; 83735; 84145; 84484; 85025; 85379; 85610; 85730; 86140; 87040; 87635; 93005; 94640; 99285